=== PATIENT | female | born 1980 | race Caucasian/White ===

== ENCOUNTER → 2018-02-07 | Outpatient (CLI) | payer OTHER ==
[~2018-02-07] MED LIST: AMOX1TAB12 PO; CLARITIN-D 121 EACH PO; DICLOFENAC SODI50 MG PO; SYNTHROID50 MCG; WELLBUTRIN75 MG
== END | disposition home or self-care (01) ==
LOC: PPH VACUNA 14:38
DX: Z23 Encounter for immunization (principal)

== ENCOUNTER 2019-07-22 09:12 | Emergency (ER) | payer OTHER ==
[~2019-07-22] VITALS: Ht 154.9 cm; Wt 77.1 kg
[2019-07-22] MEDS ORDERED: ZITHROMAX500 MG PO (10:23)
[2019-07-22] MEDS ORDERED: PROMETH-CODEIN 65 ML PO (10:23)
[2019-07-22] MEDS ORDERED: TESSALON PERLE100 M1 PO (10:23)
[2019-07-24] MEDS ORDERED: LEVOTHYROXINE25 MCG (13:40)
[2019-07-24] MEDS ORDERED: AMOX-CLAV 875-1 EACH PO (14:20)
== END 2019-07-22 10:38 | disposition home or self-care (01) ==
LOC: ER 09:12
DX: J06.9 Acute upper respiratory infection, unspecified (principal)

== ENCOUNTER → 2019-07-24 | Emergency (ER) | payer OTHER ==
[~2019-07-24] VITALS: Ht 154.9 cm; Wt 77.1 kg
[~2019-07-24] MED LIST changes: +AMOX-CLAV 875-1 EACH PO; +LEVOTHYROXINE25 MCG; +PROMETH-CODEIN 65 ML PO; +TESSALON PERLE100 M1 PO; +ZITHROMAX500 MG PO
== END | disposition home or self-care (01) ==
LOC: ER 13:32
DX: H66.92 Otitis media, unspecified, left ear (principal)

== ENCOUNTER 2021-01-13 09:31 | Outpatient (CLI) | payer OTHER | END 2021-01-13 09:41 | disposition home or self-care (01) | LOC: RX STUDY 09:31 | PROVIDERS: ATTEND Obstetrics & Gynecology Reproductive Endocrinology | DX: N93.9 Abnormal uterine and vaginal bleeding, unspecified (principal); N94.6 Dysmenorrhea, unspecified ==

== ENCOUNTER 2021-07-28 12:09 | Outpatient (CLI) | payer OTHER | END 2021-07-28 12:21 | disposition home or self-care (01) | LOC: RAD 12:09 | PROVIDERS: ATTEND Physical Medicine & Rehabilitation | DX: M43.8X4 Other specified deforming dorsopathies, thoracic region (principal); M54.2 Cervicalgia; M54.6 Pain in thoracic spine; M17.12 Unilateral primary osteoarthritis, left knee ==

== ENCOUNTER 2021-12-04 11:56 | Outpatient (CLI) | payer OTHER | END 2021-12-04 12:05 | disposition home or self-care (01) | LOC: RAD 11:56 | PROVIDERS: ATTEND Obstetrics & Gynecology Gynecology | DX: R05.1 Acute cough (principal) ==

== ENCOUNTER 2022-11-26 13:40 | Outpatient (CLI) | payer OTHER | END 2022-11-26 13:54 | disposition home or self-care (01) | LOC: RAD 13:40 | DX: M99.01 Segmental and somatic dysfunction of cervical region (principal); M99.02 Segmental and somatic dysfunction of thoracic region; M99.03 Segmental and somatic dysfunction of lumbar region; M99.04 Segmental and somatic dysfunction of sacral region; M99.05 Segmental and somatic dysfunction of pelvic region ==

== ENCOUNTER 2023-05-26 18:40 | Emergency (ER) | payer OTHER ==
[~2023-05-26] VITALS: Ht 154.9 cm; Wt 87.5 kg
== END 2023-05-26 23:17 | disposition home or self-care (01) ==
LOC: ER 18:40
PROVIDERS: General Practice
DX: R10.2 Pelvic and perineal pain (principal)

== ENCOUNTER 2023-06-10 00:14 | Inpatient (IN) | payer OTHER ==
[~2023-06-10] VITALS: Ht 154.9 cm; Wt 68.9 kg
[2023-06-10] MEDS ORDERED: LEVOTHYROXINE25 MCG (00:27)
[2023-06-10] MEDS ORDERED: FOLIC ACID0.8 M1 (00:27)
[2023-06-10] MEDS ORDERED: FEROSUL (00:28)
[2023-06-10] MEDS ORDERED: VITAMINA (00:28)
[2023-06-10] MEDS ORDERED: AYGESTIN5 MG (00:29)
[2023-06-13] MEDS ORDERED: INTEGRA PLUS C1 EACH PO (12:08)
[2023-06-13] MEDS ORDERED: LEVOTHYROXINE25 MCG PO (12:08)
[2023-06-13] MEDS ORDERED: METRONIDAZOLE500 MG PO (12:11)
[2023-06-13] MEDS ORDERED: LEVOFLOXACIN500 MG PO (12:12)
== END 2023-06-13 12:55 | disposition home or self-care (01) | DRG 690 ==
LOC: ER 00:14 → MEDJ 17:56 → SEC-K 18:38 → SURH 18:45 → SEC-K 18:50 → MEDJ 22:05
PROVIDERS: General Practice; ADMIT Internal Medicine; ATTEND Internal Medicine
PROC: BW4GZZZ Ultrasonography of Pelvic Region (ICD-10-PCS; principal; 2023-06-10)
PROC: BW21YZZ Computerized Tomography (CT Scan) of Abdomen and Pelvis using Other Contrast (ICD-10-PCS; 2023-06-10)
DX: N39.0 Urinary tract infection, site not specified (principal); D72.828 Other elevated white blood cell count; N93.8 Other specified abnormal uterine and vaginal bleeding; D25.9 Leiomyoma of uterus, unspecified; R82.71 Bacteriuria; R31.9 Hematuria, unspecified

== ENCOUNTER 2024-08-22 01:47 | Emergency (ER) | payer OTHER ==
[~2024-08-22] VITALS: Ht 154.9 cm; Wt 88.0 kg
[~2024-08-22 01:47] MED LIST changes: +AYGESTIN5 MG; +FEROSUL; +FOLIC ACID0.8 M1; +INTEGRA PLUS C1 EACH PO; +LEVOFLOXACIN500 MG PO; +LEVOTHYROXINE25 MCG PO; +METRONIDAZOLE500 MG PO; +VITAMINA
[2024-08-22] MEDS ORDERED: ORPHENADRINE CITRATE 30 MG/ML AMPUL IM STA (03:42)
[2024-08-22] MEDS ORDERED: DEXAMETHASONE SODIUM PHOSPHATE 4 MG/ML VIAL IM STA (03:42)
[2024-08-22] MEDS ORDERED: KETOROLAC TROMETHAMINE 60 MG VIAL IM STA (03:42)
[2024-08-22] MEDS ORDERED: OxyCODONE HCL/APAP UD (PERCOCET) PO STA (03:42)
== END 2024-08-22 03:56 | disposition home or self-care (01) ==
LOC: ER 01:49
DX: G24.3 Spasmodic torticollis (principal)

== ENCOUNTER → 2025-08-02 | Emergency (ER) | payer OTHER ==
[~2025-08-02] VITALS: Ht 154.9 cm; Wt 86.2 kg
[~2025-08-02] MED LIST changes: +MORPHINE SULFATE 4 MG/ML CARTRIDGE IV STA; +PAXLOVID 300-11 EAC1 PO
[2025-08-02 02:55] LABS: URINE APPEARANCE Clear; URINE BILIRRUBIN Negative (NEGATIVE); URINE BLOOD Large; URINE COLOR Orange; URINE GLUCOSE Negative (NEGATIVE); URINE KETONE Negative (NEGATIVE); URINE LEUKOCYTE Trace; URINE NITRATE Negative; URINE PROTEIN Negative (NEGATIVE); URINE UROBILINOGEN 0.2 E.U./dl
[2025-08-02 03:03] LABS: URINE BACTERIA 77.9 uL (0.0-1933); URINE EPITHELIAL CELLS 2.1 uL (0.0-38.8); URINE RBC 3858.0 uL (0.0-20.8); URINE WBC 3.0 uL (0.0-23.2)
[2025-08-02 03:04] LABS: BASO % 0.4 % (0.1-1.2); EOS # 0.03 (0.04-0.54); EOS % 0.2 % (0.7-7.0); LYMPH # 2.95 (1.18-3.74); LYMPH % 19.7 % (19.3-53.1); MONO # 0.81 (0.24-0.82); MONO % 5.4 % (4.7-12.5); NEUT # 11.08 (1.56-6.13); NEUT % 74.0 % (34.0-71.1); RED CELL DISTRIBUTION WIDTH 20.5 % (11.6-14.4)
[2025-08-02 03:16] LABS: URINE CAST 0.00 uL (0.0-1.40)
[2025-08-02 04:20] LABS: INR 1.01
[2025-08-02 04:32] LABS: ALT/SGPT 38 U/L (12-78); AST/SGOT 28 U/L (15-37); BILIRUBIN TOTAL 0.33 mg/dL (0.3-1.2); BUN CREA RATIO 21 (7.0-25.0); CREATININE SERUM 0.58 mg/dL (0.55-1.02); GFR 112.93; GLOBULINA 3.6 G/DL (2.4-3.5); GLUCOSE FASTING 112 mg/dL (65-100); OSMOLALITY SERUM 274 MOSM/KG (275-295)
[2025-08-02 04:33] LABS: HCG QUANTITATIVE < 1 mUI/mL (1-3)
== END | disposition left against medical advice (07) ==
LOC: ER 00:10
PROVIDERS: Physician Assistant Medical
DX: D64.89 Other specified anemias (principal); R10.31 Right lower quadrant pain; N80.03 Adenomyosis of the uterus; M06.8A Other specified rheumatoid arthritis, other specified site; E03.8 Other specified hypothyroidism; K59.00 Constipation, unspecified